=== PATIENT | male | born 1955 | race Caucasian/White ===

== ENCOUNTER 2018-08-01 05:36 | Day surgery (SDC) | payer MEDICARE ==
[2018-07-31 16:34] LABS: BASOPHILS # (AUTO) 0.1 X10'3 (0-0.2); BASOPHILS % (AUTO) 0.8 % (0-1); EOSINOPHILS # (AUTO) 0.3 X10'3 (0-0.9); EOSINOPHILS % (AUTO) 3.6 % (0-6); LYMPHOCYTES # (AUTO) 1.7 X10'3 (1.1-4.8); LYMPHOCYTES % (AUTO) 22.7 % (21-51); MEAN CORPUSCULAR HEMOGLOBIN 29.8 PG (27.0-31.0); MEAN CORPUSCULAR HGB CONC 32.9 g/dL (33.0-36.5); MEAN CORPUSCULAR VOLUME 90.5 FL (78-98); MEAN PLATELET VOLUME 7.9 FL (7.4-10.4); MONOCYTES # (AUTO) 0.7 X10'3 (0-0.9); MONOCYTES % (AUTO) 8.9 % (2-12); NEUTROPHILS # (AUTO) 4.8 X10'3 (1.8-7.7); PRE OP HEMATOCRIT 46.2 % (42.0-52.0); PRE OP HEMOGLOBIN 15.2 g/dL (14.0-17.9); PRE OP PLATELET COUNT 226 X10'3 (140-440); RED CELL DISTRIBUTION WIDTH 13.5 % (11.5-14.5)
[2018-07-31 16:51] LABS: ALBUMIN 3.9 G/DL (3.4-5.0); ALBUMIN/GLOBULIN RATIO 1.1 (1.1-1.5); ALKALINE PHOSPHATASE 81 IU/L (46-116); BLOOD UREA NITROGEN 19 MG/DL (7-18); BUN/CREATININE RATIO 17.9 (5.4-32.0); CALCIUM 9.5 MG/DL (8.5-10.1); CHLORIDE 103 MMOL/L (99-107); CREATININE 1.06 MG/DL (0.60-1.10); PRE OP ALT 30 U/L (30-65); PRE OP ANION GAP 7 (8-16); PRE OP AST 18 U/L (10-37); PRE OP BILIRUB, TOTAL 0.4 MG/DL (0.0-1.0); PRE OP GLUCOSE 102 MG/DL (70-104); PRE OP POTASSIUM 3.9 MMOL/L (3.4-5.1); PRE OP SODIUM 141 MMOL/L (135-145); TOTAL CARBON DIOXIDE 30.6 MMOL/L (24-32); TOTAL PROTEIN 7.4 G/DL (6.4-8.2); eGFR 70 ML/MIN
[2018-07-31 16:59] LABS: CLARITY,URINE CLEAR (Clear); COLOR,URINE YELLOW (Yellow); GLUCOSE, URINE NEGATIVE (Neg); KETONES,URINE NEGATIVE (Neg); LEUKOCYTE ESTERASE ,URINE NEGATIVE (Neg); NITRITES, URINE NEGATIVE (Neg); OCCULT BLOOD,URINE NEGATIVE (Neg); PH,URINE 6.5 (4.8-8.0); PROTEIN,URINE NEGATIVE (Neg); UROBILINOGEN,URINE 0.2 E.U/dL (0.2-1.0)
[2018-07-31 17:00] LABS: UA COLLECTION TYPE VOIDED
[2018-07-31 17:05] LABS: PRE OP PROTIME 10.3 SECONDS (9.0-12.0)
[2018-08-01] VITALS (14 sets, daily range): BP systolic 101–133; BP diastolic 66–86
[~2018-08-01] VITALS: Ht 175.3 cm; Wt 124.6 kg
[~2018-08-01 05:36] MED LIST: HYDR-4353 PO; HYDR25TA4 PO; IBUP-1984 PO; LISI40TA4 PO; SIMV40TA4 PO; TERA5CAP4 PO; ceFAZolin 2gm in dextrose, iso 100 ML IV ONE; ceFAZolin inj. 3,000 MG in normal saline 100ml IV soln 100 ML IV ONE; famotidine 20mg tablet PO ONE; ringers solution, lacted 1,000 ML IV SCH
[2018-08-01] MEDS ORDERED: LIDOcaine 1% (10mg/ml) 2ml vial ONE (05:59)
[2018-08-01] MEDS ORDERED: BUPIVAcaine/PF 2.5mg/ml (0.25%) 10ml vial ONE (06:50)
[2018-08-01] MEDS ORDERED: ceFAZolin 1000mg inj ONE (06:50)
[2018-08-01] MEDS ORDERED: glycopyrrolate 0.2mg/ml inj ONE (07:31)
[2018-08-01] MEDS ORDERED: sevoflurane 250ml liquid IH ONE (07:31)
[2018-08-01] MEDS ORDERED: fentaNYL/PF 50MCG/1 ML 2ML syringe ONE ×2 (07:31→07:36)
[2018-08-01] MEDS ORDERED: midazolam 2 mg/2 ml injection ONE (07:36)
[2018-08-01] MEDS ORDERED: rocuronium 10mg/ml inj IV ONE (07:36)
[2018-08-01] MEDS ORDERED: propofol inj 20 ML IV ONE (07:36)
[2018-08-01] MEDS ORDERED: neostigmine methylsulfate 1 MG/ML 10ml vial ONE (08:45)
[2018-08-01] MEDS ORDERED: ringers solution, lacted 1,000 ML IV SCH (09:04)
[2018-08-01] MEDS ORDERED: morphine 4 MG/ML inj SYRINge IV PRN ×2 (09:05)
[2018-08-01] MEDS ORDERED: ondansetron/PF 4mg/2ml inj IV PRN (09:05)
[2018-08-01] MEDS ORDERED: proCHLORperazine 10 MG/2 ml inj IV PRN (09:05)
[2018-08-01] MEDS ORDERED: meperidine/PF 25mg/ml syringe IV PRN ×2 (09:05)
--- NOTE | 2018-08-01 09:05 | NUR ---
Received from OR via BED , accompanied by Anesthesiologist DR PERRY and report given by Anesthesiolgist. PATIENT WAKING UP, C/O NECK PAIN SEE EMAR, V/S WNL, CSM INTACT, POSTERIOR NECK DRESSING WITH HOA DRAIN WITH SCANT OUTPUT, 20G RUE, SCD ON.
[2018-08-01] MEDS ORDERED: meperidine/PF 25mg/ml syringe ONE ×2 (09:06→09:17)
[2018-08-01] MEDS ORDERED: ketorolac tromethamine 15mg/ml inj. IV ONE (09:15)
[2018-08-01] MEDS: meperidine/PF 25mg/ml syringe IV PRN ×2 (09:18→10:02)
[2018-08-01] MEDS ORDERED: acetaminophen 1,000mg/100ml IV 100 ML IV ONE (10:25)
--- NOTE | 2018-08-01 10:55 | NUR ---
PATIENT A&OX4, STATES PAIN IS UNDER CONTROL, V/S WNL, CSM INTACT, POSTERIOR NECK DRESSING WITH HOA DRAIN WITH SCANT OUTPUT CDI, 20G RUE D/C, SCD OFF. i HAVE REVIEWED D/C INSTRUCTIONS AND HOA INSTRUCTIONS AND GIVEN KEFLEX FROM YANCY TO PATIENT AND HE HAS VERBALIZED UNDERSTANDING. PATIENT D/C HOME WITH FAMILY WHO GAVE TRANSPORT.
== END 2018-08-01 10:55 | disposition home or self-care (01) ==
LOC: PAS 05:36
PROVIDERS: ATTEND Surgery
DX: D17.0 Benign lipomatous neoplasm of skin and subcutaneous tissue of head, face and neck (principal); I10 Essential (primary) hypertension; F32.9 Major depressive disorder, single episode, unspecified; Z96.659 Presence of unspecified artificial knee joint; Z87.891 Personal history of nicotine dependence; Z79.899 Other long term (current) drug therapy; Z98.890 Other specified postprocedural states
CPT/HCPCS: 21552; 36415; 71046; 80053; 81003; 82948; 85025; 85610; 85730; 93005; A6449; J0131; J0690; J1885; J2175; J2250; J2704; J2710; J3010; J3490; J7120; 88304; A7000; J7030

== ENCOUNTER 2021-09-02 05:24 | Day surgery (SDC) | payer MEDICARE ==
[2021-08-26 11:02] LABS: BASOPHILS # (AUTO) 0.1 X10'3 (0-0.2); BASOPHILS % (AUTO) 1.1 % (0-1); EOSINOPHILS # (AUTO) 0.3 X10'3 (0-0.9); EOSINOPHILS % (AUTO) 3.5 % (0-6); LYMPHOCYTES # (AUTO) 2.1 X10'3 (1.1-4.8); LYMPHOCYTES % (AUTO) 26.3 % (21-51); MEAN CORPUSCULAR HGB CONC 33.5 g/dL (33.0-36.5); MEAN CORPUSCULAR VOLUME 89.5 FL (78-98); MEAN PLATELET VOLUME 7.4 FL (7.4-10.4); MONOCYTES # (AUTO) 0.7 X10'3 (0-0.9); NEUTROPHILS # (AUTO) 4.8 X10'3 (1.8-7.7); NEUTROPHILS % (AUTO) 60.1 % (42-75); PRE OP HEMATOCRIT 42.9 % (42.0-52.0); PRE OP HEMOGLOBIN 14.4 g/dL (14.0-17.9); PRE OP PLATELET COUNT 273 X10'3 (140-440); RED BLOOD COUNT 4.79 X10'6 (4.70-6.10); RED CELL DISTRIBUTION WIDTH 14.7 % (11.5-14.5)
[2021-08-26 11:20] LABS: CLARITY,URINE CLEAR (Clear); COLOR,URINE YELLOW (Yellow); GLUCOSE, URINE NEGATIVE (Neg); KETONES,URINE NEGATIVE (Neg); LEUKOCYTE ESTERASE ,URINE NEGATIVE (Neg); NITRITES, URINE NEGATIVE (Neg); OCCULT BLOOD,URINE NEGATIVE (Neg); PROTEIN,URINE NEGATIVE (Neg); UROBILINOGEN,URINE 0.2 E.U/dL (0.2-1.0)
[2021-08-26 11:23] LABS: ALBUMIN 3.9 G/DL (3.4-5.0); ALKALINE PHOSPHATASE 92 IU/L (46-116); BLOOD UREA NITROGEN 19 MG/DL (7-18); BUN/CREATININE RATIO 17.4 (5.4-32.0); CALCIUM 8.7 MG/DL (8.5-10.1); CHLORIDE 103 MMOL/L (99-107); CREATININE 1.09 MG/DL (0.60-1.10); PRE OP ALT 24 U/L (30-65); PRE OP ANION GAP 8 (8-16); PRE OP AST 18 U/L (10-37); PRE OP BILIRUB, TOTAL 0.4 MG/DL (0.0-1.0); PRE OP GLUCOSE 104 MG/DL (70-104); PRE OP POTASSIUM 4.1 MMOL/L (3.4-5.1); PRE OP SODIUM 140 MMOL/L (135-145); TOTAL CARBON DIOXIDE 29.4 MMOL/L (24-32); TOTAL PROTEIN 7.7 G/DL (6.4-8.2); eGFR 67 ML/MIN
[2021-08-26 11:23] LABS: UA COLLECTION TYPE CLN CATCH MIDSTREAM
[2021-09-02] VITALS (14 sets, daily range): BP systolic 130–173; BP diastolic 83–102
[~2021-09-02] VITALS: Ht 175.3 cm; Wt 127.1 kg
[~2021-09-02 05:24] MED LIST changes: +ALBU8.5H17 INH; +ASCO-134 PO; +ASPI-1071 PO; +CHOL400T8 PO; -HYDR25TA4 PO; -IBUP-1984 PO; -LISI40TA4 PO; +LOSA1TAB39 PO; +PANT40TA54 PO; +SIMV-45 PO; -SIMV40TA4 PO; -ceFAZolin 2gm in dextrose, iso 100 ML IV ONE; -ceFAZolin inj. 3,000 MG in normal saline 100ml IV soln 100 ML IV ONE; -famotidine 20mg tablet PO ONE
[2021-09-02] MEDS ORDERED: albuterol 2.5 MG/3 ML nebule NEB ONE (05:30)
[2021-09-02] MEDS ORDERED: famotidine 20mg tablet PO ONE (05:30)
[2021-09-02] MEDS ORDERED: ceFAZolin inj. 3,000 MG in normal saline 100ml IV soln 100 ML IV ONE (05:30)
[2021-09-02] MEDS ORDERED: BUPIVAcaine 0.5% inj/PF 0 ML ONE (07:06)
[2021-09-02] MEDS ORDERED: bacitracin 15gm ointment TP ONE (07:06)
[2021-09-02] MEDS ORDERED: fentaNYL/PF 50MCG/1 ML 2ML syringe ONE (07:11)
[2021-09-02] MEDS ORDERED: sevoflurane 250ml liquid IH ONE (07:24)
[2021-09-02] MEDS ORDERED: ROPIVAcaine 0.2% (10 MG/5 ML) BOLUS INJECTION POPLITEAL PRN (07:25)
[2021-09-02] MEDS ORDERED: ROPIVAcaine 0.2%/PF PUMP/bolus 545 ML POPLITEAL SCH (07:25)
[2021-09-02] MEDS ORDERED: morphine 2 MG/ML inj. syringe IV PRN (07:25)
[2021-09-02] MEDS ORDERED: labetalol 20mg/4ml (5mg/ml) syringe IV PRN (07:25)
[2021-09-02] MEDS ORDERED: ondansetron/PF 4mg/2ml inj IV PRN (07:25)
[2021-09-02] MEDS ORDERED: ringers solution, lacted 1,000 ML IV SCH (07:25)
[2021-09-02] MEDS ORDERED: proCHLORperazine 10 MG/2 ml inj IV PRN (07:25)
[2021-09-02] MEDS ORDERED: meperidine/PF 25mg/ml syringe IV PRN ×3 (07:25)
[2021-09-02] MEDS ORDERED: hydrALAZINE 20mg/ml inj. IV PRN (07:25)
[2021-09-02] MEDS ORDERED: morphine 4 MG/ML inj SYRINge IV PRN (07:25)
[2021-09-02] MEDS ORDERED: acetaminophen 1,000mg/100ml IV 100 ML IV PRN (07:25)
[2021-09-02] MEDS ORDERED: midazolam 1 mg/ML 2ml injection ONE (08:20)
[2021-09-02] MEDS ORDERED: propofol inj 20 ML IV ONE ×2 (08:21)
[2021-09-02] MEDS ORDERED: LIDOcaine 2% (20mg/ml) 5ml vial ONE (08:21)
[2021-09-02] MEDS ORDERED: ondansetron/PF 4mg/2ml inj ONE (08:29)
[2021-09-02] MEDS ORDERED: dexamethasone sod phosphate 4mg/ml inj. ONE (08:29)
--- NOTE | 2021-09-02 09:45 | NUR ---
Received from OR via [facility] , accompanied by Anesthesiologist WILLAM and report given by Anesthesiolgist. PATIENT WITH 20G PIV IN LEFT UE RUNNING LR AT 100. DENIES PAIN. RIGHT FOOT IN SPLINT PRESNT WITH TOES EXPOSED. + CAP REFILL TO TOES AND AREA ALL PWD. PATIENT FOOT OF BED GATCHED AND ELEVATED. CAST ELEVATOR PROVIDED WELL. PATIENT WITH 10L MASK ON WITH 99% SASTURATIONS. VSS. MARILOU Man DONNED PER PATIENT REQUEST. Addendum: 09/02/21 at 1003 by Hamilton Jacinto RN, RN Amended: Links added.
--- NOTE | 2021-09-02 11:45 | NUR ---
ALL DISCHARGE CRITERIA HAS BEEN MET. VSS, PAIN AT A TOLERABLE LEVEL, ABLE TO SAFELY TRANSFER SELF. IV TAKEN OUT WITHOUT ANY COMPLICATIONS. ALL DISCHARGE INSTRUCTIONS COVERED WITH PATIENT AND ALL QUESTIONS ANSWERED. PATIENT TAKEN OUT VIA WHEELCHAIR TO PERSONAL VEHICLE WHERE FAMILY/FRIEND DROVE PATIENT HOME. REINFORCED ELEVATION WITH USE OF WEDGE AND INCENTIVE SPIROMETRY. PATIENT SHOWED GOOD UNDERSTANDING AND AGREED TO COMPLY WITH USAGE. Addendum: 09/02/21 at 1225 by Hamilton Pacheco - MARLON MASON Amended: Links added.
== END 2021-09-02 11:45 | disposition home or self-care (01) ==
LOC: PAS 05:24
PROVIDERS: ATTEND Podiatrist Foot & Ankle Surgery
DX: M21.6X1 Other acquired deformities of right foot (principal); M21.071 Valgus deformity, not elsewhere classified, right ankle; M21.171 Varus deformity, not elsewhere classified, right ankle; M19.071 Primary osteoarthritis, right ankle and foot; M76.821 Posterior tibial tendinitis, right leg; I10 Essential (primary) hypertension; G62.9 Polyneuropathy, unspecified; K21.9 Gastro-esophageal reflux disease without esophagitis; G89.18 Other acute postprocedural pain; E66.9 Obesity, unspecified; Z68.41 Body mass index [BMI] 40.0-44.9, adult; Z87.891 Personal history of nicotine dependence; Z98.890 Other specified postprocedural states; Z79.899 Other long term (current) drug therapy; Z20.822 Contact with and (suspected) exposure to COVID-19
CPT/HCPCS: 27687; 28238; 28300; 28304; 36415; 64446; 64447; 73620; 76000; 76942; 80053; 81003; 82948; 85025; 94640; 94760; A6223; C1713; C1762; J0690; J1100; J2250; J2405; J2704; J2795; J3010; J3490; J7030; J7120; U0003; U0005; Z7506; Z7508; Z7512; A4618; A6253; A6449; A7000; S0020

== ENCOUNTER 2024-10-08 09:54 | Outpatient (CLI) | payer MEDICARE, OTHER ==
[~2024-10-08 09:54] MED LIST changes: +iohexol 300mg/ml 100ml inj. ONE; -ringers solution, lacted 1,000 ML IV SCH
[2024-10-08 10:25] LABS: ALBUMIN 3.8 G/DL (3.4-5.0); ANION GAP 7 (8-16); BLOOD UREA NITROGEN 17 MG/DL (7-18); BUN/CREATININE RATIO 17.9 (10.0-20.0); CALCIUM 8.7 MG/DL (8.5-10.1); CHLORIDE 106 MMOL/L (99-107); CREATININE 0.95 MG/DL (0.60-1.10); GLUCOSE 109 MG/DL (70-104); SODIUM 145 MMOL/L (135-145); TOTAL CARBON DIOXIDE 31.7 MMOL/L (24-32); eGFR 78 ML/MIN
--- NOTE | 2024-10-08 18:58 | RADIOLOGY REPORT ---
CLINICAL HISTORY: OTHER NONSPECIFIC ABNORMAL FINDING OF LUNG FIELD TECHNIQUE: Chest CT was performed with 100 ml of omnipaque 300 administered intravenously. This exam was performed according to our departmental dose optimization program. Up-to-date CT equipment and ra diation dose reduction techniques are utilized as appropriate. WID: COMPARISON: None FINDINGS: Lower Neck: Unremarkable Axilla, Mediastinum and Sheron: There is a well-defined low/intermediate density mass in the left anter ior mediastinum measuring 3.7 x 5.2 cm on series 3, image 27. Scattered normal-sized mediastinal lymp h nodes seen otherwise. There is no hilar lymphadenopathy. There is no axillary lymphadenopathy. Heart and Great Vessels: Normal-sized heart with trace pericardial fluid. The thoracic aorta is paten t and normal caliber with mild mixed atherosclerotic plaque. At least mild coronary artery calcificat ions. The central pulmonary arteries are normal caliber. Airway, Lungs and Pleura: The trachea and central airways are patent. Linear bibasilar scarring or at electasis. No airspace consolidation, pleural effusion, or pneumothorax. Upper Abdomen: No acute abnormality. Chest Wall and Osseous Structures: Mild multilevel thoracic spondylosis. No destructive osseous lesio n. IMPRESSION: 1. Well-defined low/intermediate density left anterior mediastinal mass. DDX includes thymoma ; liliya gnant etiology such as thymic carcinoma, carcinoid, lymphoma, or germ cell neoplasm less likely thoug h additional considerations. 2. Mild Calcified Coronary artery disease.
== END 2024-10-08 23:59 | disposition home or self-care (01) ==
LOC: RAD 09:54
PROVIDERS: ATTEND Family Medicine
DX: I25.10 Atherosclerotic heart disease of native coronary artery without angina pectoris (principal); R91.8 Other nonspecific abnormal finding of lung field
CPT/HCPCS: 36415; 71260; 80048; Q9967

== ENCOUNTER 2024-11-12 10:16 | Outpatient (CLI) | payer MEDICARE, OTHER ==
[~2024-11-12] VITALS: Ht 173.4 cm; Wt 117.9 kg
[~2024-11-12 10:16] MED LIST changes: -iohexol 300mg/ml 100ml inj. ONE
[2024-11-12] MEDS: albuterol 2.5 MG/3 ML nebule NEB ONE (11:29)
[2024-11-12 11:30] VITALS: PULSE 70; RESP 18; O2SAT 96
[2024-11-12 11:42] VITALS: PULSE 72; RESP 17
--- NOTE | 2024-11-18 13:52 | PROCEDURE NOTE - Respiratory ---
Procedure Note-Respiratory Providers to CC Copies To 1: BLAIRE PATEL MD Procedure Name: This is a spirometry study dated November 12, 2024. The spirometry study was performed both before and after inhaled bronchodilator. There was also a lung diffusion measurement accomplished. Spirometry measurements: The forced vital capacity is normal. The FEV1 is in the lower range of normal. The FEV1 ratio is clearly reduced. All of the measured flow rates show substantial reduction. After inhaled bronchodilator was administered, there is significant improvement in the FEV1 and the flow rate measurements. Lung diffusion measurement: The DLCO measurement is normal. Conclusion: This study is abnormal. There is evidence for moderate severity obstructive ventilatory defect. The patient improved slightly with inhaled bro nchodilator. It is recommended that this patient continue to use bronchodilator medication. Compared to a previous study performed 16 years earlier, there is deterioration documented. The FEV1 has dropped from 2.99 L to 2.58 L. the forced vital capacity has dropped from 4.78 L to 4.17 L. the DLCO measurement has dropped from 29 to 25. Close pulmonary follow-up is recommended. CYNTHIA RAMÍREZ MD Nov 18, 2024 13:52
== END 2024-11-12 23:59 | disposition home or self-care (01) ==
LOC: RT 10:16
PROVIDERS: ATTEND Family Medicine
DX: Z01.811 Encounter for preprocedural respiratory examination (principal); R91.8 Other nonspecific abnormal finding of lung field; I48.91 Unspecified atrial fibrillation; Z87.891 Personal history of nicotine dependence
CPT/HCPCS: 94060; 94729; 94760